=== PATIENT | female | born 1995 | race Two or more races ===

== ENCOUNTER 2020-11-04 23:24 | Emergency (ER) | payer MEDICAID ==
[~2020-11-04] VITALS: Ht 165.1 cm; Wt 90.7 kg
[2020-11-05 01:01] LABS: Urine Amorphous Crystal FEW /hpf (None Seen); Urine Bacteria MOD /hpf (None Seen); Urine Blood 1+ /uL (Negative); Urine Hyaline Cast FEW /lpf (0 - 2); Urine Mucus FEW (None Seen); Urine Specific Gravity 1.016 (1.001-1.035); Urine WBC 34 /hpf (0 - 5); Urine WBC Clumps PRESENT /hpf (None Seen)
[2020-11-05 04:20] VITALS: BP 128/70
== END 2020-11-06 04:20 | disposition home or self-care (01) ==
LOC: ER 23:24
DX: N39.0 Urinary tract infection, site not specified (principal); Z32.02 Encounter for pregnancy test, result negative
CPT/HCPCS: 81001; 81025

== ENCOUNTER 2023-08-31 06:24 | Emergency (ER) | payer BC, MEDICAID ==
[~2023-08-31] VITALS: Ht 167.6 cm; Wt 108.6 kg
[2023-08-31 10:41] VITALS: BP 126/89; PULSE 65; RESP 16; TEMP 97.6; O2SAT 96
[2023-08-31 12:25] LABS: Urine Bacteria None Seen /hpf (None Seen)
[2023-08-31 12:43] LABS: Urine Blood Negative /uL (Negative); Urine Clarity Clear (Clear); Urine Color Light-Yellow (Yellow); Urine Protein, UAD Negative (Negative); Urine Specific Gravity 1.018 (1.001-1.035); Urine Urobilinogen Normal (Negative); Urine WBC 1 /hpf (0 - 5); Urine pH 5.5 (5.0-9.0)
[2023-08-31 12:44] LABS: Amphetamine Screen, Urine Neg (NEGATIVE); Barbiturate Scree,Urine Neg (NEGATIVE); Cocaine Screen, Urine Neg (NEGATIVE)
[2023-08-31 12:45] LABS: Benzodiazephine Screen, Urine Neg (NEGATIVE); Cannabinoid Screen, Urine Neg (NEGATIVE); Opiate Scree,Urine Neg (NEGATIVE); Phencyclidine Screen, Urine Neg (NEGATIVE)
== END 2023-08-31 15:30 | disposition home or self-care (01) ==
LOC: ER 06:24
DX: I10 Essential (primary) hypertension (principal); R10.2 Pelvic and perineal pain; G89.18 Other acute postprocedural pain; Z98.890 Other specified postprocedural states; Z88.8 Allergy status to other drugs, medicaments and biological substances
CPT/HCPCS: 80307; 81001; 81025